=== PATIENT | female | born 1960 | race Caucasian/White ===

== ENCOUNTER 2023-12-02 09:47 | Outpatient (CLI) | payer MEDICARE, OTHER ==
[2023-12-02 09:57] LABS: BASOPHILS # (AUTO) 0.1 10^3/uL (0.0-0.1); BASOPHILS % (AUTO) 0.9 %; EOSINOPHILS # (AUTO) 0.1 10^3/uL (0.0-0.7); HCT - HEMATOCRIT 38.9 % (37.0-47.0); HGB - HEMOGLOBIN 12.5 g/dL (12.0-16.0); LYMPHOCYTES # (AUTO) 1.7 10^3/uL (1.5-3.5); LYMPHOCYTES % (AUTO) 30.4 %; MEAN CORPUSCULAR HEMOGLOBIN 31.6 pg (27.0-31.0); MEAN CORPUSCULAR HGB CONC 32.1 g/dL (32.0-36.0); MEAN CORPUSCULAR VOLUME 98.2 fL (81.0-99.0); MEAN PLATELET VOLUME 10.5 fL (7.9-10.8); MONOCYTES # (AUTO) 0.5 10^3/uL (0.0-1.0); MONOCYTES % (AUTO) 8.6 %; NEUTROPHILS # (AUTO) 3.2 10^3/uL (1.5-6.6); NEUTROPHILS % (AUTO) 57.9 %; PLT - PLATELET COUNT 234 10^3/uL (130-450); RED BLOOD COUNT 3.96 10^6/uL (4.20-5.40); RED CELL DISTRIBUTION WIDTH 13.2 % (12.0-15.0); WHITE BLOOD COUNT 5.6 x10^3/uL (4.8-10.8)
[2023-12-02 10:11] LABS: ALBUMIN 3.9 g/dL (3.2-5.5); ALBUMIN/GLOBULIN RATIO 1.6 (1.0-2.2); ALKALINE PHOSPHATASE 52 IU/L (42-121); ALT ALANINE AMINOTRANSFERASE 15 IU/L (10-60); AST ASPARTATE AMINOTRANSFERASE 18 IU/L (10-42); BILIRUBIN,TOTAL 0.5 mg/dL (0.2-1.0); BUN - BLOOD UREA NITROGEN 24 mg/dL (6-20); CALCIUM 9.5 mg/dL (8.5-10.3); CARBON DIOXIDE - CO2 26 mmol/L (21-32); CHLORIDE 108 mmol/L (101-111); CHOL/HDL RATIO 2.2 (<4.4); CHOLESTEROL 216 mg/dL; GFR - MDRD 56 (>89); GLUCOSE 161 mg/dL (74-104); HDL CHOLESTEROL 99 mg/dL; LDL CHOLESTEROL,CALCULATED 105 mg/dL; LDL/HDL RATIO 1.1 (<4.4); POTASSIUM 4.6 mmol/L (3.5-4.5); SODIUM 139 mmol/L (135-145); TOTAL PROTEIN 6.3 g/dL (6.4-8.9); TRIGLYCERIDES 62 mg/dL (48-352); VLDL CHOLESTEROL 12 mg/dL
[2023-12-02 10:26] LABS: THYROID STIMULATING HORMONE 0.72 uIU/mL (0.34-5.60)
== END 2023-12-02 09:48 | disposition home or self-care (01) ==
LOC: LAB 09:47
PROVIDERS: ATTEND Nurse Practitioner Family
DX: E03.9 Hypothyroidism, unspecified (principal); E11.65 Type 2 diabetes mellitus with hyperglycemia
CPT/HCPCS: 36415; 80053; 80061; 83721; 84443; 85025

== ENCOUNTER 2024-01-21 13:59 | Outpatient (CLI) | payer MEDICARE, OTHER ==
--- NOTE | 2024-01-25 09:33 | Mammography Report ---
BILATERAL DIGITAL SCREENING MAMMOGRAM 3D/2D WITH AUGMENTATION: 01/21/2024 CLINICAL: Routine screening. No prior exams were available for comparison. Both breasts are heterogeneously dense, which may obscure small masses (category c / 51-75% glandular tissue). Bilateral breast implants are intact. No significant masses, calcifications, or other findings are seen in either breast. IMPRESSION: NEGATIVE There is no mammographic evidence of malignancy. A 1 year screening mammogram is recommended. Based on the Tyrer Cuzick model (a risk assessment model) the patient's lifetime risk is 8.2% and her 10 year risk is 3.5%. According to the ACR, ACS, and NCCN guidelines, an annual breast MRI exam nelly g with mammogram is recommended if the patient's lifetime risk is 20% or greater. This exam was interpreted at Station ID: [id number]. NOTE: For mammograms, a report in lay terms will be sent to the patient. Approximately 15% of breast malignancies will not be visualized mammographically. In the management of a palpable breast mass, a negative mammogram must not discourage biopsy of a clinically suspicious lesion. Electronically Signed By: Wes polanco/[email or web address]:01/22/2024 12:43:49 letter sent: No_Letter ACR BI-RADS Category 1: Negative 3341F PARENCHYMAL PATTERN: (D) - The breast(s) demonstrate(s) heterogeneously dense fibroglandular parmilliy ma. BI-RADS CATEGORY: (1) - 1 RECOMMENDATION: (ANNUAL) - Recommend routine annual screening mammography. [id number] 1 year screening LATERALITY: (B)
== END 2024-01-21 14:00 | disposition home or self-care (01) ==
LOC: DI 13:59
PROVIDERS: ATTEND Nurse Practitioner Family
DX: Z12.31 Encounter for screening mammogram for malignant neoplasm of breast (principal); R92.333 Mammographic heterogeneous density, bilateral breasts; Z98.82 Breast implant status

== ENCOUNTER 2024-02-08 15:04 | Outpatient (CLI) | payer MEDICARE, OTHER ==
--- NOTE | 2024-02-08 17:31 | Ultrasound Report ---
PROCEDURE: Arterial Duplex Lwr Ext BL INDICATIONS: PVD TECHNIQUE: Color and pulse Doppler interrogation was performed of both lower extremity arterial systems, with im age documentation. COMPARISON: None FINDINGS: Right lower extremity: Common femoral artery: 145.8 cm/sec, with triphasic flow. Deep femoral artery: 109.9 cm/sec, with biphasic flow. Proximal superficial femoral artery: 154.9 cm/sec, with triphasic flow. Mid superficial femoral artery: 151.5 cm/sec, with triphasic flow. Distal superficial femoral artery: 128.7 cm/sec, with triphasic flow. Popliteal artery: 60.7 cm/sec, with triphasic flow. Posterior tibial artery: 26.9 cm/sec, with biphasic flow. Anterior tibial artery/dorsalis pedis: 89.0 cm/sec, with triphasic flow. Harley-scale imaging description: No focal hemodynamically significant stenosis. Left lower extremity: Common femoral artery: 163.0 cm/sec, with triphasic flow. Deep femoral artery: 122.4 cm/sec, with triphasic flow. Proximal superficial femoral artery: 135.3 cm/sec, with triphasic flow. Mid superficial femoral artery: 125.3 cm/sec, with triphasic flow. Distal superficial femoral artery: 128.1 cm/sec, with triphasic flow. Popliteal artery: 77.8 cm/sec, with triphasic flow. Posterior tibial artery: 43.7 cm/sec, with biphasic flow. Anterior tibial artery/dorsalis pedis: 86.1 cm/sec, with triphasic flow. Harley-scale imaging description: No focal hemodynamically significant stenosis. IMPRESSION: Patent lower extremity vasculature without hemodynamically significant stenosis. Reviewed by: Brooklynn Garduno MD on 02/08/2024 5:30 PM PDT Approved by: Brooklynn Garduno MD on 02/08/2024 5:30 PM PDT Station ID: [id number]
== END 2024-02-08 15:05 | disposition home or self-care (01) ==
LOC: DI 15:04
PROVIDERS: ATTEND Podiatrist
DX: E10.51 Type 1 diabetes mellitus with diabetic peripheral angiopathy without gangrene (principal)
CPT/HCPCS: 93925

== ENCOUNTER 2024-03-03 09:28 | Outpatient (CLI) | payer MEDICARE, OTHER ==
[2024-03-03 09:36] LABS: BASOPHILS # (AUTO) 0.1 10^3/uL (0.0-0.1); BASOPHILS % (AUTO) 1.2 %; EOSINOPHILS # (AUTO) 0.3 10^3/uL (0.0-0.7); EOSINOPHILS % (AUTO) 4.9 %; HCT - HEMATOCRIT 39.6 % (37.0-47.0); HGB - HEMOGLOBIN 12.2 g/dL (12.0-16.0); LYMPHOCYTES # (AUTO) 1.7 10^3/uL (1.5-3.5); LYMPHOCYTES % (AUTO) 28.3 %; MEAN CORPUSCULAR HEMOGLOBIN 30.6 pg (27.0-31.0); MEAN CORPUSCULAR HGB CONC 30.8 g/dL (32.0-36.0); MEAN CORPUSCULAR VOLUME 99.2 fL (81.0-99.0); MEAN PLATELET VOLUME 10.4 fL (7.9-10.8); MONOCYTES # (AUTO) 0.6 10^3/uL (0.0-1.0); MONOCYTES % (AUTO) 9.9 %; NEUTROPHILS # (AUTO) 3.3 10^3/uL (1.5-6.6); NEUTROPHILS % (AUTO) 55.4 %; PLT - PLATELET COUNT 250 10^3/uL (130-450); RED BLOOD COUNT 3.99 10^6/uL (4.20-5.40); RED CELL DISTRIBUTION WIDTH 12.7 % (12.0-15.0); WHITE BLOOD COUNT 5.9 x10^3/uL (4.8-10.8)
[2024-03-03 09:50] LABS: ALBUMIN 3.9 g/dL (3.2-5.5); ALBUMIN/GLOBULIN RATIO 1.6 (1.0-2.2); BILIRUBIN,TOTAL 0.3 mg/dL (0.2-1.0); POTASSIUM 5.1 mmol/L (3.5-4.5); TOTAL PROTEIN 6.4 g/dL (6.4-8.9)
== END 2024-03-03 09:29 | disposition home or self-care (01) ==
LOC: LAB 09:28
PROVIDERS: ATTEND Nurse Practitioner Family
DX: E10.65 Type 1 diabetes mellitus with hyperglycemia (principal)
CPT/HCPCS: 36415; 80053; 85025